=== PATIENT | female | born 1950 | race Caucasian/White ===

== ENCOUNTER 2017-05-11 20:42 | Emergency (ER) | payer MEDICARE, OTHER ==
[~2017-05-11] VITALS: Ht 152.4 cm; Wt 66.8 kg
[2017-05-11 20:52] VITALS: BP 140/92; PULSE 87; RESP 16; O2SAT 95
--- NOTE | 2017-05-11 21:45 | DRSVH ---
PROCEDURE: X-RAY LEFT KNEE, THREE VIEWS ([id number]) INDICATIONS: 66 year-old female unable to bear weight on the left knee. TECHNIQUE: 3 views of the knee were acquired. COMPARISON: [facility], , KNEE 3VW (LT), 04/24/2014, 11:12. FINDINGS: Bones: No fractures or dislocations. No suspicious bony lesions. Soft tissues: There is moderate joint effusion. No suspicious soft tissue calcifications. IMPRESSION: No acute bony injuries of the left knee. Moderate left knee joint effusion may indicate s oft tissue injury in the appropriate clinical setting. Dictated by: Deshwan Marks M.D. on 05/11/2017 at 21:42 Approved by: Deshawn Marks M.D. on 05/11/2017 at 21:43
--- NOTE | 2017-05-11 23:40 | ED.REPORT ---
HPI-General Illness Date of Service May 11, 2017 ED Provider: Vito Head MD Pt is a 66 year old female with a history of hypothyroid and depression who presents to the ED complaining of sharp left knee pain onset today while she was walking. The pt reports that she was walking back to her house when she heard/felt a "big crack" in her left knee, followed by inability to bear weight on it. She denies extremity swelling, extremity pain, sore throat, hematuria, hematochezia, constipation, diarrhea, joint swelling, fever, rash, bruising, chest pain, numbness, paresthesia, and SOB. She states that she has been experiencing intermittent left knee pain onset 2 weeks ago prior to todays incident. Pt rates her left knee pain as a 4/10 at rest, and reports that it is exacerbated with movement. Nursing Notes Stated Complaint: LEFT KNEE PAIN Chief Complaint: Extremity Trauma Nursing Notes Reviewed: Yes Allergies: Coded Allergies: No Known Allergies (Unverified , 05/11/17) General Time Seen by MD: 23:18 Chief Complaint Other (Left knee pain) Hx Obtained From: Patient Arrived By: Walk-in Sudden in Onset?: Yes Onset Occurred: 5 - 8 hours ago Symptom Duration: Since onset Location: : Knee left Quality: Painful, Sharp Radiation: : Does not radiate Severity: Current: Pain level 4 out of 10 Severity: Maximum: Moderate Recent Healthcare: No recent doctor visit, No recent hospitalization Similar Sx Previous: No Past Medical History Past Medical History Hypothyroid Reports: Depression Past Surgical History None reported Smoking History Unknown if Ever Smoker Social History Other Social History: Good social support Ambulatory Status Independent Review of Systems Denies paresthesia Full Review of Systems Constitutional: Denies: Fever Ears / Nose / Throat: Denies: Sore throat Respiratory: Denies: Shortness of breath Cardiovascular: Denies: Chest pain GI: Denies: Constipation, Diarrhea, Hematochezia Female: Denies: Hematuria Musculoskeletal: Reports: Joint pain, Denies: Extremity pain, Extremity swelling, Joint swelling Hematologic: Denies Bruising Skin: Denies Rash Neurologic: Denies: Numbness Complete sys rev & neg: except as marked. Physical Exam General: Well appearing, no acute distress HEENT: mucous membranes moist Pulm: Speaking comfortably with unlabored respirations, no respiratory distress Card: Regular rate, good peripheral perfusion Abd: Soft, nontender, nondistended Skin: Warm and dry, no rashes or pallor appreciated Psych: Appropriate mood and affect. Behavior appears normal. Neuro: AOx3, strength and sensation to light touch grossly intact throughout. Extremities: Moving all extremities, no peripheral edema appreciated. Left knee : Negative anterior and posterior drawer test. No significant pain with varus or valgus test. Cannot appreciate any warmth, erythema, or signs of infection. No swelling. Vital Signs Vital Signs Date Time Temp Pulse Resp B/P Pulse Ox O2 Delivery O2 Flow Rate FiO2 05/12/17 00:27 79 93 Room Air 05/11/17 20:52 36.8 87 16 140/92 95 Room Air Initial VS: Reviewed Interpretation & Diagnostics X-Ray Interpretation Xray Interpretation: IMPRESSION: No acute bony injuries of the left knee. Moderate left knee joint effusion may indicate soft tissue injury in the appropriate clinical setting. Dictated by: Deshawn Marks M.D. on 05/11/2017 at 21:42 Study Performed: Three views X-Ray Ordered: Knee left Interpretation / Wet Read by: Interpret - Radiologist Re-Eval/Medical Decision Med Decision/Clinical Course In summary, 66-year-old female presenting to the ED for evaluation of left knee pain, present for the last 2 weeks, but worse today after hearing a "crack". No signs of infection on exam. No bony tenderness appreciated. X-ray negative for fracture. There is an effusion noted on the x-ray, however cannot appreciate this on examination. She has not been having any unilateral leg swelling and the pain is located in the anterior knee; I do not suspect that this is enrollment representative of a DVT at this time, however I discussed that I would like her to follow up with her primary care physician tomorrow. Negative anterior/ posterior drawer test, no joint laxity. Given the above, reasonable to discharge home with very careful return precautions, conservative management with a knee brace for comfort, RICE therapy, and PCP follow-up tomorrow. Patient agreeable to the plan as stated, no further questions. Able to ambulate here in the ED without significant difficulty and bear weight. Source of Hx: Old records Time of Eval: 23:36 Re-Evaluation/Progress Note: Informed pt of negative x-ray and effusion to knee. Discussed plan for knee brace, and need for f/u with her PCP this week. Offered crutches, but she declined. Pt understands and agrees with plan for discharge. F/U instructions and RTER warnings given. All questions addressed. Counseled Regarding: Diagnosis, Need for follow-up, When/why to return to ED Discharge & Departure Primary Impression: Knee pain, left Chronicity: acute Qualified Code: M25.562 - Pain in left knee Disposition: Home Discharge Condition All VS Reviewed: Yes Condition: Stable Patient Instructions: Knee Pain (ED) Additional Instructions: Thank you for allowing us to be a part of your care in the ED today. Your emergency department evaluation, including x-ray, are reassuring. I do not think that there is an emergent cause for your symptoms today that would require admission to the hospital; however, a clear cause of your symptoms was not identified. Please schedule a follow up appointment with your primary care physician tomorrow for a recheck. Please return to the emergency department for any new or worsening symptoms including any numbness or tingling to your foot, nausea, vomiting, abdominal pain, shortness of breath, chest pain, one sided weakness/numbness, fevers, or chills, or if there's anything else of concern to you. Referrals: Adolph Morocho MD (PCP) Scribe Attestation Portions of this note were transcribed by Lizet Mills. I, Dr. Head personally performed the history, physical exam and medical decision-making; I reviewed and confirmed the accuracy of the information in the transcribed note. Signed by: Zak Marr, 05/11/17. copies to: Adolph Morocho MD, William B MD May 11, 2017 23:40 Lizet Vang May 11, 2017 23:47
[2017-05-12 00:27] VITALS: PULSE 79; O2SAT 93
== END 2017-05-12 00:28 | disposition home or self-care (01) ==
LOC: SED 20:42
DX: M25.562 Pain in left knee (principal); E03.9 Hypothyroidism, unspecified